=== PATIENT | female | born 1990 | race Caucasian/White ===

== ENCOUNTER → 2020-06-25 14:25 | Day surgery (SDC) | payer BC, MEDICAID, SELFPAY ==
[2020-06-25 16:22] VITALS: BP 130/79; PULSE 95; RESP 18; TEMP 36.1
[2020-06-25 16:54] VITALS: BP 130/79; PULSE 98; RESP 18; TEMP 36.6; O2SAT 100
== END ==
PROVIDERS: PCP Family Medicine; Visit Provider Family Medicine
DX: O26.899 Other specified pregnancy related conditions, unspecified trimester (principal); Z3A.00 Weeks of gestation of pregnancy not specified; Z31.82 Encounter for Rh incompatibility status; Z67.91 Unspecified blood type, Rh negative
CPT/HCPCS: 36430; 86850; 86900; 90384; 96372

== ENCOUNTER 2020-08-31 22:26 | Inpatient (IN) | payer BC, MEDICAID, SELFPAY ==
[2020-08-31 22:17] VITALS: BP 130/71; PULSE 114
[2020-08-31 22:45] VITALS: BMI 418.0
[2020-08-31 22:51] VITALS: RESP 20
[2020-08-31 22:56] VITALS: BP 129/76; PULSE 111
[2020-08-31 23:11] LABS: Basophils # 0.1 10^3/uL (0.0-0.1); Basophils % 0.3 %; Eosinophils # 0.3 10^3/uL (0.0-0.8); Eosinophils % 1.7 %; Hematocrit 38.1 % (37.0-47.0); Hemoglobin 12.4 g/dL (11.5-15.3); Lymphocytes # 2.7 10^3/uL (0.8-4.8); Lymphocytes % 18.7 %; Mean Corpuscular HGB Conc 32.5 g/dL (30.0-36.0); Mean Corpuscular Hemoglobin 27.6 pg (28.0-34.0); Mean Corpuscular Volume 84.9 fL (81-99); Mean Platelet Volume 11.6 fL (7.4-10.4); Monocytes # 0.8 10^3/uL (0.2-0.9); Monocytes % 5.3 %; Neutrophils # 10.72 10^3/uL (1.8-7.7); Neutrophils % 73.2 %; Nucleated Red Blood Cells % 0 %; Platelet Count 249 10^3/cmm (130-400); Red Blood Count 4.49 10^6/uL (4.1-5.3); Red Cell Distribution Width 13.4 % (12.1-15.1); White Blood Count 14.6 10^3/uL (4.0-10.0)
[2020-09-01] VITALS (16 sets, daily range): BP systolic 104–144; BP diastolic 57–83; PULSE 71–85; RESP 14–20; TEMP 36.2–37.1
[2020-09-01] MEDS: fentaNYL 50 mcg/mL INJ 2mL IVP ×3 (00:02→02:38)
[2020-09-01] MEDS: dextrose 5%-lactated ringers 1,000 ML 125 ML IV (02:39)
[2020-09-01] MEDS: oxytocin 30 UNIT/500 ML BAG 600 UNIT IV (04:11)
--- NOTE | 2020-09-01 04:33 | PM.DELIVERY ---
Delivery Note: Date of delivery: September 01, 2020 This 30-year-old 3 now para 3 female at 38 weeks and 4 days gestation had spontaneous onset of labor at home. She arrived to [facility] OB department at approximately 6 cm dilated. She dilated slowly throughout the night to complete cervical dilatation early the morning of delivery. With no anesthesia, the patient was able to deliver fairly quickly by spontaneous vaginal livery healthy, viable male at 0408. Upon delivery the head the mouth and nose were suctioned at the perineum. She had a little trouble initially getting baby out as the shoulders were transverse. With some suprapubic pressure and rotation we were able to rotate the baby around clockwise and deliver the right shoulder anteriorly followed by the posterior shoulder and remainder of the infant. As there was little shoulder dystocia, the infant was somewhat stunned at . The was suctioned again and laid on mother's abdomen where the umbilical cord was clamped quickly and then cut by the infant's father. The infant was then transferred to the warmer for further evaluation. The umbilical cord had 3 vessels. There was no nuchal cord on delivery. The placenta delivered spontaneously at 04 11. Evaluation of the perineum and the vaginal vault demonstrated no tears or active bleeding. The vaginal vault was swept with minimal clots. Infant Apgars were 6 and 8 at 1 and 5 minutes respectively and the weighed 9 pounds 5 ounces. Estimated blood loss approximately 136 mL. Pre-Delivery Course: This patient was followed by this physician throughout her . There were no major problems or concerns through the . Maternal blood type was O- with antibody screen negative. Hepatitis B, hepatitis C, RPR and HIV were negative. Rubella was immune and group B strep was negative. Covid testing was done Wednesday and is pending. She did receive RhoGam at approximately 28 weeks gestation. Delivery: Spontaneous vaginal delivery. Post-Delivery Status: Presently patient is doing well and will be followed for routine postdelivery care. A&P Assessment and plan (1) Normal spontaneous vaginal delivery: Patient did well and will be followed for routine postdelivery care. We will adjust orders as necessary. 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
[2020-09-01] MEDS: prenatal vitamin Capsule 1 CAP PO (09:00)
[2020-09-01] MEDS: ibuprofen 800 mg tablet PO ×3 (09:01→20:54)
[2020-09-01] MEDS: docusate sodium 100 mg Capsule PO ×2 (09:01→17:32)
[2020-09-01 16:28] LABS: Hemoglobin 10.5 g/dL (11.5-15.3); Mean Corpuscular HGB Conc 31.8 g/dL (30.0-36.0); Mean Corpuscular Hemoglobin 27.9 pg (28.0-34.0); Mean Corpuscular Volume 87.8 fL (81-99); Mean Platelet Volume 11.8 fL (7.4-10.4); Platelet Count 202 10^3/cmm (130-400); Red Blood Count 3.76 10^6/uL (4.1-5.3); Red Cell Distribution Width 13.6 % (12.1-15.1)
[2020-09-02 04:21] VITALS: BP 124/88; PULSE 70; RESP 16
--- NOTE | 2020-09-02 07:22 | PM.OBGYDC ---
Discharge Providers COUNTER HELP Date of Admission: 08/31/20 22:26 Date of Discharge: 09/02/20 Attending Provider at Admission: Matti Castro MD Attending Provider at Discharge: Matti Castro MD Primary Care Provider: Matti Castro MD Diagnoses at Discharge Discharge Diagnosis (1) Normal spontaneous vaginal delivery: Status: Acute Reason for Visit Reason for Visit: CONTRACTIONS Hospital Course Hospital Course This patient came to [facility] OB department in active labor. She delivered by spontaneous vaginal delivery a healthy, viable male infant early yesterday morning. She has done extremely well since . She is bottlefeeding. She has had just mild lochia and no significant cramps. She is ambulating well and tolerating regular diet and is stable for discharge home. Information Peripartum Data: Delivery Method: Vaginal Physical Exam Const: COMMON NORMALS: no acute distress and healthy appearing GENERAL APPEARANCE: cooperative and comfortable HENMT: COMMON NORMALS: moist oral mucous membranes Resp: COMMON NORMALS: normal respiratory effort, No use of accessory muscles and clear to auscultation bilaterally AUSCULTATION: clear to auscultation bilaterally Cardio: COMMON NORMALS: regular rate, regular rhythm and No murmurs present (Cardio) RATE: regular rate RHYTHM: regular rhythm GI: COMMON NORMALS: Normal to inspection, nondistended, normoactive bowel sounds present and Soft to palpation (Fundus is firm.) PALPATION: Yes Soft to palpation (Fundus is firm.) Back/Pelvis: COMMON NORMALS: no thoracic nor lumbar tenderness Extremity: COMMON NORMALS: normal to inspection, full ROM, no calf tenderness and no pedal edema Neuro: COMMON NORMALS: no focal motor deficits and no sensory deficits noted Psych: COMMON NORMALS: mental status grossly normal, cooperative and normal affect Skin: COMMON NORMALS: no rashes or lesions noted GENERAL SKIN EXAM: no rashes or lesions noted Discharge Data Data Completed and Pending: Pending at discharge Category Date Time Status Complete Crossmat ch Routine Lab 08/31/20 22:35 Results Rho D Immune Glob ulin Routine Lab 08/31/20 22:35 Results Type and Screen R outine Lab 08/31/20 22:35 Results Labs from last 24 hours 09/01/20 09/01/20 08/31/20 16:10 16:10 22:35 WBC 15.0 H RBC 3.76 L Hgb 10.5 L Hct 33.0 L MCV 87.8 MCH 27.9 L MCHC 31.8 RDW 13.6 Plt Count 202 MPV 11.8 H Blood Type O Negative Rho(D) Type Negative / 0 Antibody Screen Negative Screen Negative Cancelled Vitals: Last Vital Signs Temp 97.6 F 09/01/20 18:06 Pulse 80 09/01/20 18:06 Resp 14 09/01/20 18:06 BP 121/83 09/01/20 18:06 Discharge Plan Discharge Patient Disposition: Home Condition: Stable Prescriptions: New ibuprofen 800 mg Tablet 800 mg PO TID Qty: 90 RF: 2 DOK 100 mg Capsule 100 mg PO BID Qty: 60 RF: 1 Continued omeprazole 20 mg capsule,delayed release(DR/EC) 20 mg PO DAILY RF: 0 Discharge Orders: Discharge Order (Routine); Ordered 09/02/20 Ordered By: Matti Castro Referrals: Matti Castro MD [Primary Care Provider] - 6 Weeks Discharge Diet: Usual diet Discharge Activity: Resume usual activity Discharge Attestations COUNTER HELP Time Spent in Discharge Care*: less than 30 min Specific Discharge Activities: Specific discharge activities: educating patient, documenting/other paperwork and evaluating patient/reviewing data Coding Level of Care Code Acute Roll Out Manager for Chg Fwd Diagnoses Normal spontaneous vaginal delivery O80
[2020-09-02 07:26] VITALS: BP 111/71; PULSE 85; RESP 17; TEMP 36.8; O2SAT 99
[2020-09-02 07:31] VITALS: BP 111/71; PULSE 85; RESP 17; TEMP 36.8; O2SAT 99
[2020-09-02 08:15] VITALS: BP 112/80; PULSE 86; RESP 16; TEMP 36.9; O2SAT 99
[2020-09-02 08:39] VITALS: BP 112/80; PULSE 86; RESP 16; TEMP 36.9; O2SAT 99
== END 2020-09-02 08:50 | disposition home or self-care (01) | DRG 807 ==
LOC: OPOB 09-01 01:06 → OBGYN 09-01 01:06
PROVIDERS: Admitting Provider Family Medicine; PCP Family Medicine; Visit Provider Family Medicine
DX: O66.0 Obstructed labor due to shoulder dystocia (principal); Z37.0 Single live birth; Z3A.38 38 weeks gestation of pregnancy
CPT/HCPCS: 36415; 59025; 59409; 85025; 85027; 85460; 86850; 86900; 90384; 96372; 96374; 96375; 99211; J3010